=== PATIENT | male | born 1985 | race Caucasian/White ===

== ENCOUNTER → 2016-04-24 | Outpatient (CLI) | payer OTHER ==
[2016-04-24 08:52] LABS: ALBUMIN 3.7 GM/DL (3.2-5.2); ALBUMIN/GLOBULIN RATIO 1.09 (1.00-1.93); ALKALINE PHOSPHATASE 75 U/L (45-117); ALT/SGPT 24 U/L (12-78); ANION GAP 8 MEQ/L (8-16); AST/SGOT 12 U/L (15-37); BILIRUBIN,DIRECT 0.1 MG/DL (0.0-0.2); BILIRUBIN,TOTAL 0.5 MG/DL (0.2-1.0); BLOOD UREA NITROGEN 16 MG/DL (7-18); CALCIUM LEVEL 8.9 MG/DL (8.5-10.1); CARBON DIOXIDE LEVEL 29 MEQ/L (21-32); CHLORIDE LEVEL 105 MEQ/L (98-107); CHOLESTEROL LEVEL 90 MG/DL (<200); CREATININE FOR GFR 1.25 MG/DL (0.70-1.30); GLOMERULAR FILTRATION RATE > 60.0 (>60); GLUCOSE, FASTING 160 MG/DL (70-105); POTASSIUM SERUM 4.2 MEQ/L (3.5-5.1); SODIUM LEVEL 142 MEQ/L (136-145); TOTAL PROTEIN 7.1 GM/DL (6.4-8.2); TRIGLYCERIDES LEVEL 92 MG/DL (<150)
== END ==
LOC: M LAB 07:58
PROVIDERS: ATTEND Family Medicine
DX: E13.29 Other specified diabetes mellitus with other diabetic kidney complication (principal); I10 Essential (primary) hypertension

== ENCOUNTER → 2016-06-15 | Outpatient (REF) | payer OTHER | LOC: M SFHCLERA 13:25 | PROVIDERS: ATTEND Nurse Practitioner Family | DX: R53.81 Other malaise (principal) ==

== ENCOUNTER → 2016-06-19 | Outpatient (REF) | payer OTHER | LOC: M SFHCLERA 10:02 | PROVIDERS: ATTEND Physician Assistant | DX: J02.9 Acute pharyngitis, unspecified (principal) ==

== ENCOUNTER → 2016-07-05 | Outpatient (CLI) | payer OTHER ==
--- NOTE | 2016-07-05 18:57 | REP ---
Clinical: Acute bronchitis . Comparison: 03/02/2009 . Technique: PA and lateral. Findings: The mediastinum and cardiac silhouette are normal. The lung bundy are clear and without acute consolidation, effusion, or pneumothorax. The skeletal structures are intact and normal. Impression: 1. No focal consolidation appreciated. Signed by Yohannes Beach MD 07/05/2016 06:49 P
== END ==
LOC: M RAD 17:27
PROVIDERS: ATTEND Family Medicine
DX: J20.8 Acute bronchitis due to other specified organisms (principal)

== ENCOUNTER 2019-03-23 09:49 | Emergency (ER) | payer OTHER, BC ==
[~2019-03-23] VITALS: Ht 172.7 cm; Wt 96.8 kg
[2019-03-23] MEDS ORDERED: NOVOINJ3 (09:55)
[2019-03-23] MEDS ORDERED: ASPI81TA85 PO (09:55)
[2019-03-23] MEDS ORDERED: SIMV10TA21 (09:55)
[2019-03-23] MEDS ORDERED: LISI-538 (09:55)
[2019-03-23] MEDS ORDERED: TRES1INJ (09:55)
[2019-03-23] MEDS ORDERED: IBUPROFEN 800 MG TAB PO ONE (10:45)
--- NOTE | 2019-03-23 11:23 | REP ---
Five views lumbar spine: 03/23/2019. Indication: Low back pain. Comparison: 03/31/2008. Findings: Vertebral body alignment is anatomic. Disc space height is preserved. There is no acute fracture, subluxation or dislocation. No significant paraspinal soft tissue abnormalities are detected. Impression: No acute osseous lumbar spine injury. Electronically Signed by Evan Napier DO 03/23/2019 11:14 A
[2019-03-23] MEDS ORDERED: LIDOCAINE 5% (LIDODERM) PATCH TD ONE (12:00)
[2019-03-23] MEDS ORDERED: LIDO5DIS41 TOP (12:02)
[2019-03-23] MEDS ORDERED: IBUP80TA PO (12:02)
[2019-03-23 12:24] VITALS: BP 125/80
[2019-03-23] MEDS ORDERED: **NOTE PATIENT COMMENT** MISC XX SCH (21:00)
== END 2019-03-23 12:32 | disposition home or self-care (01) ==
LOC: M ED 09:49
DX: S39.012A Strain of muscle, fascia and tendon of lower back, initial encounter (principal); X50.0XXA Overexertion from strenuous movement or load, initial encounter; Y99.0 Civilian activity done for income or pay; E10.9 Type 1 diabetes mellitus without complications; I10 Essential (primary) hypertension; Z85.820 Personal history of malignant melanoma of skin; Z79.82 Long term (current) use of aspirin; Z79.84 Long term (current) use of oral hypoglycemic drugs; Z79.899 Other long term (current) drug therapy

== ENCOUNTER 2019-10-08 14:34 | Emergency (ER) | payer BC, OTHER ==
[~2019-10-08] VITALS: Ht 172.7 cm; Wt 95.6 kg
[~2019-10-08 14:34] MED LIST: ASPI81TA85 PO; IBUP80TA PO; LIDO5DIS41 TOP; LISI-538; NOVOINJ3; SIMV10TA21; TRES1INJ
[2019-10-08] MEDS ORDERED: BOOSTRIX/ADACEL VACCINE (DIPHTH/PERTUSS/ACELL/TETANUS) 0.5ML SYR IM ONE (15:00)
--- NOTE | 2019-10-08 15:44 | REP ---
Clinical: Trauma left second digit Technique: AP, lateral, bilateral oblique views left second digit Findings: The osseous structures and joint spaces are intact and normal. There is no evidence for acute fracture or dislocation. Surrounding soft tissues are unremarkable. No subcutaneous emphysema or radiodense foreign body. Impression: No subcutaneous emphysema or foreign body. No acute fracture or dislocation. Electronically Signed by Yohannes Beach MD 10/08/2019 03:35 P
[2019-10-08] MEDS ORDERED: LIDOCAINE 1% MDV 20ML VIAL INFIL ONE (15:45)
[2019-10-08] MEDS ORDERED: NEOSPORIN OINT 0.9 GM PKT TOP ONE (16:15)
[2019-10-08 16:16] VITALS: BP 119/68
== END 2019-10-08 16:18 | disposition home or self-care (01) ==
LOC: M ED 14:34
DX: S61.211A Laceration without foreign body of left index finger without damage to nail, initial encounter (principal); W26.0XXA Contact with knife, initial encounter; Y93.G1 Activity, food preparation and clean up; Y92.89 Other specified places as the place of occurrence of the external cause; Y99.9 Unspecified external cause status; I10 Essential (primary) hypertension; E11.9 Type 2 diabetes mellitus without complications; Z79.4 Long term (current) use of insulin

== ENCOUNTER → 2020-04-19 | Outpatient (CLI) | payer BC, OTHER ==
[~2020-04-19] MED LIST changes: -ASPI81TA85 PO; +ASPI81TA86 PO; -LISI-538; +LISI20TA33
[2020-04-19 09:28] LABS: HEMATOCRIT 54.4 % (42.0-52.0); HEMOGLOBIN 18.1 g/dl (13.5-17.5); MEAN CORPUSCULAR HEMOGLOBIN 29.1 pg (27.0-33.0); MEAN CORPUSCULAR HGB CONC 33.3 g/dl (32.0-36.5); MEAN CORPUSCULAR VOLUME 87.6 fl (80.0-96.0); PLATELET COUNT, AUTOMATED 286 10^3/uL (150-450); RED BLOOD COUNT 6.21 10^6/uL (4.30-6.10); WHITE BLOOD COUNT 7.5 10^3/uL (4.0-10.0)
[2020-04-19 10:36] LABS: ALBUMIN 2.8 GM/DL (3.2-5.2); ALT/SGPT 27 U/L (12-78); BILIRUBIN,TOTAL 0.8 MG/DL (0.2-1.0); BLOOD UREA NITROGEN 14 MG/DL (7-18); CALCIUM LEVEL 8.6 MG/DL (8.5-10.1); CARBON DIOXIDE LEVEL 32 MEQ/L (21-32); CHLORIDE LEVEL 108 MEQ/L (98-107); CHOLESTEROL LEVEL 166 MG/DL (<200); CHOLESTEROL RISK RATIO 2.862 (<5); CREATININE FOR GFR 1.09 MG/DL (0.70-1.30); GLOMERULAR FILTRATION RATE > 60.0 (>60); GLUCOSE, FASTING 31 MG/DL (70-100); HDL CHOLESTEROL 58 MG/DL (>40); LDL CHOLESTEROL 94 MG/DL (<100); NON-HDL-C 108 MG/DL; SODIUM LEVEL 143 MEQ/L (136-145); TOTAL PROTEIN 6.1 GM/DL (6.4-8.2); TRIGLYCERIDES LEVEL 71 MG/DL (<150)
[2020-04-19 11:01] LABS: MAU/CREAT RATIO 3112.9 MCG/MG (0.0-30.0)
== END ==
LOC: M LAB 08:51
PROVIDERS: ATTEND Internal Medicine Endocrinology, Diabetes & Metabolism
DX: E10.65 Type 1 diabetes mellitus with hyperglycemia (principal)

== ENCOUNTER → 2020-04-27 | Outpatient (CLI) | payer SELFPAY | LOC: M LABSMTC 10:40 | PROVIDERS: ATTEND Pediatrics | DX: Z20.822 Contact with and (suspected) exposure to COVID-19 (principal) ==

== ENCOUNTER → 2020-06-05 | Outpatient (CLI) | payer BC, OTHER ==
[2020-06-05 10:13] LABS: HEMATOCRIT 52.3 % (42.0-52.0); HEMOGLOBIN 17.7 g/dl (13.5-17.5); MEAN CORPUSCULAR HEMOGLOBIN 29.9 pg (27.0-33.0); MEAN CORPUSCULAR HGB CONC 33.8 g/dl (32.0-36.5); MEAN CORPUSCULAR VOLUME 88.5 fl (80.0-96.0); PLATELET COUNT, AUTOMATED 278 10^3/uL (150-450); RED BLOOD COUNT 5.91 10^6/uL (4.30-6.10); WHITE BLOOD COUNT 8.2 10^3/uL (4.0-10.0)
== END ==
LOC: M LAB 09:43
PROVIDERS: ATTEND Internal Medicine Endocrinology, Diabetes & Metabolism
DX: E10.65 Type 1 diabetes mellitus with hyperglycemia (principal)

== ENCOUNTER → 2020-10-18 | Outpatient (CLI) | payer BC, OTHER ==
[2020-10-18 09:30] LABS: BASO # 0.1 10^3/uL (0.0-0.2); BASO % 1.4 % (0.0-1.0); EOS % 13.9 % (0.0-3.0); HEMATOCRIT 51.5 % (42.0-52.0); HEMOGLOBIN 17.5 g/dl (13.5-17.5); LYMPH % 28.1 % (24.0-44.0); MEAN CORPUSCULAR HEMOGLOBIN 29.9 pg (27.0-33.0); MONO # 0.5 10^3/uL (0.0-0.8); MONO % 6.2 % (2.0-8.0); NEUTROPHILS # 3.6 10^3/uL (1.5-8.5); NEUTROPHILS % 49.6 % (36.0-66.0); PLATELET COUNT, AUTOMATED 281 10^3/uL (150-450); RED BLOOD COUNT 5.85 10^6/uL (4.30-6.10); WHITE BLOOD COUNT 7.3 10^3/uL (4.0-10.0)
[2020-10-18 09:41] LABS: INR 0.87
[2020-10-18 09:42] LABS: PARTIAL THROMBOPLASTIN TIME 30.3 SECONDS (24.2-38.5)
[2020-10-18 09:59] LABS: COLLAGEN EPINEPHRINE 77 SECONDS (74-162)
[2020-10-18 10:00] LABS: BLOOD UREA NITROGEN 15 MG/DL (7-18); CALCIUM LEVEL 8.4 MG/DL (8.5-10.1); CARBON DIOXIDE LEVEL 25 MEQ/L (21-32); CHLORIDE LEVEL 108 MEQ/L (98-107); CREATININE FOR GFR 1.21 MG/DL (0.70-1.30); GLOMERULAR FILTRATION RATE > 60.0 (>60); GLUCOSE, FASTING 241 MG/DL (70-100); SODIUM LEVEL 141 MEQ/L (136-145)
== END ==
LOC: M LAB 08:58
PROVIDERS: ATTEND Internal Medicine Nephrology
DX: R80.9 Proteinuria, unspecified (principal)

== ENCOUNTER 2020-11-21 11:51 | Outpatient (CLI) | payer BC, OTHER ==
[2020-11-21] VITALS (13 sets, daily range): BP systolic 123–146; BP diastolic 54–93
[~2020-11-21] VITALS: Ht 172.7 cm; Wt 98.6 kg
[~2020-11-21 11:51] MED LIST changes: +ALBUTEROL SULFATE 2.5 MG/0.5 ML INH NEB SOLN INH PRN; +EPINEPHrine INJ 1 MG/ML 1ML AMP IM PRN; +diphenhydrAMINE 50MG/ML VIAL (J1200) IV PRN; +methylPREDNISolone 125MG 2ML VIAL IV PRN
[2020-11-21 12:27] LABS: HEMATOCRIT 50.9 % (42.0-52.0); HEMOGLOBIN 17.2 g/dl (13.5-17.5); MEAN CORPUSCULAR HEMOGLOBIN 29.9 pg (27.0-33.0); MEAN CORPUSCULAR HGB CONC 33.8 g/dl (32.0-36.5); MEAN CORPUSCULAR VOLUME 88.5 fl (80.0-96.0); PLATELET COUNT, AUTOMATED 304 10^3/uL (150-450); RED BLOOD COUNT 5.75 10^6/uL (4.30-6.10); WHITE BLOOD COUNT 7.2 10^3/uL (4.0-10.0)
[2020-11-21] MEDS ORDERED: RITU10VLL IV (12:52)
[2020-11-21] MEDS ORDERED: RITUXIMAB PVVR IV ONE ×3 (13:30)
[2020-11-21] MEDS ORDERED: NS 1,000 ML IV SCH (13:30)
== END 2020-11-21 17:45 | disposition home or self-care (01) ==
LOC: M INFU 11:51
PROVIDERS: ATTEND Internal Medicine Nephrology
DX: N04.9 Nephrotic syndrome with unspecified morphologic changes (principal)
CPT/HCPCS: 36592; 85027; 96375; 96413; 96415; J1200; Q5119

== ENCOUNTER 2020-11-28 10:02 | Outpatient (CLI) | payer BC, OTHER ==
[~2020-11-28] VITALS: Ht 172.7 cm; Wt 98.6 kg
[2020-11-28] VITALS (7 sets, daily range): BP systolic 111–144; BP diastolic 57–86
[~2020-11-28 10:02] MED LIST changes: +ACETAMINOPHEN TAB 650MG DOSE (2X325MG) PO ONE; +NS 1,000 ML IV SCH; +NS IV ONE; +RITU10VLL IV; +RITUXIMAB PVVR IV ONE; +diphenhydrAMINE 50MG/ML VIAL (J1200) IV ONE
[2020-11-28 10:34] LABS: HEMATOCRIT 50.5 % (42.0-52.0); HEMOGLOBIN 17.9 g/dl (13.5-17.5); MEAN CORPUSCULAR HEMOGLOBIN 30.6 pg (27.0-33.0); MEAN CORPUSCULAR HGB CONC 35.4 g/dl (32.0-36.5); MEAN CORPUSCULAR VOLUME 86.3 fl (80.0-96.0); PLATELET COUNT, AUTOMATED 261 10^3/uL (150-450); RED BLOOD COUNT 5.85 10^6/uL (4.30-6.10); WHITE BLOOD COUNT 8.3 10^3/uL (4.0-10.0)
== END 2020-11-28 10:10 | disposition home or self-care (01) ==
LOC: M INFU 10:02
PROVIDERS: ATTEND Internal Medicine Nephrology
DX: N04.2 Nephrotic syndrome with diffuse membranous glomerulonephritis (principal)
CPT/HCPCS: 36592; 85027; 96375; 96413; 96415; J1200; Q5119

== ENCOUNTER 2020-12-05 10:26 | Outpatient (CLI) | payer BC, OTHER ==
[~2020-12-05] VITALS: Ht 172.7 cm; Wt 98.6 kg
[2020-12-05] VITALS (7 sets, daily range): BP systolic 114–136; BP diastolic 65–89
[2020-12-05 11:00] LABS: HEMATOCRIT 54.8 % (42.0-52.0); HEMOGLOBIN 18.8 g/dl (13.5-17.5); MEAN CORPUSCULAR HEMOGLOBIN 30.1 pg (27.0-33.0); MEAN CORPUSCULAR HGB CONC 34.3 g/dl (32.0-36.5); MEAN CORPUSCULAR VOLUME 87.8 fl (80.0-96.0); PLATELET COUNT, AUTOMATED 346 10^3/uL (150-450); RED BLOOD COUNT 6.24 10^6/uL (4.30-6.10); WHITE BLOOD COUNT 8.6 10^3/uL (4.0-10.0)
== END 2020-12-05 15:20 | disposition home or self-care (01) ==
LOC: M INFU 10:26
PROVIDERS: ATTEND Internal Medicine Nephrology
DX: N04.2 Nephrotic syndrome with diffuse membranous glomerulonephritis (principal)
CPT/HCPCS: 36592; 85027; 96375; 96413; 96415; J1200; Q5119

== ENCOUNTER 2020-12-13 09:56 | Outpatient (CLI) | payer BC, OTHER ==
[~2020-12-13] VITALS: Ht 172.7 cm; Wt 98.6 kg
[~2020-12-13 09:56] MED LIST changes: -ACETAMINOPHEN TAB 650MG DOSE (2X325MG) PO ONE; -ALBUTEROL SULFATE 2.5 MG/0.5 ML INH NEB SOLN INH PRN; -EPINEPHrine INJ 1 MG/ML 1ML AMP IM PRN; -NS 1,000 ML IV SCH; -NS IV ONE; -RITUXIMAB PVVR IV ONE; -diphenhydrAMINE 50MG/ML VIAL (J1200) IV ONE; -diphenhydrAMINE 50MG/ML VIAL (J1200) IV PRN; -methylPREDNISolone 125MG 2ML VIAL IV PRN
[2020-12-13 10:00] VITALS: BP 140/98
[2020-12-13] MEDS ORDERED: ALBUTEROL SULFATE 2.5 MG/0.5 ML INH NEB SOLN INH PRN (10:00)
[2020-12-13] MEDS ORDERED: NS IV ONE ×6 (10:00)
[2020-12-13] MEDS ORDERED: ACETAMINOPHEN TAB 650MG DOSE (2X325MG) PO ONE (10:00)
[2020-12-13] MEDS ORDERED: diphenhydrAMINE 50MG/ML VIAL (J1200) IV ONE (10:00)
[2020-12-13] MEDS ORDERED: EPINEPHrine INJ 1 MG/ML 1ML AMP IM PRN (10:00)
[2020-12-13] MEDS ORDERED: methylPREDNISolone 125MG 2ML VIAL IV PRN (10:00)
[2020-12-13] MEDS ORDERED: RITUXIMAB PVVR IV ONE ×6 (10:00)
[2020-12-13] MEDS ORDERED: NS 1,000 ML IV SCH (10:00)
[2020-12-13] MEDS ORDERED: diphenhydrAMINE 50MG/ML VIAL (J1200) IV PRN (10:00)
[2020-12-13 10:17] LABS: HEMATOCRIT 49.6 % (42.0-52.0); HEMOGLOBIN 16.9 g/dl (13.5-17.5); MEAN CORPUSCULAR HGB CONC 34.1 g/dl (32.0-36.5); MEAN CORPUSCULAR VOLUME 87.9 fl (80.0-96.0); PLATELET COUNT, AUTOMATED 292 10^3/uL (150-450); RED BLOOD COUNT 5.64 10^6/uL (4.30-6.10); WHITE BLOOD COUNT 6.4 10^3/uL (4.0-10.0)
[2020-12-13 11:30] VITALS: BP 121/71
[2020-12-13 12:00] VITALS: BP 116/66
[2020-12-13 12:30] VITALS: BP 120/77
[2020-12-13 14:40] VITALS: BP 115/70
== END 2020-12-13 14:40 | disposition home or self-care (01) ==
LOC: M INFU 09:56
PROVIDERS: ATTEND Internal Medicine Nephrology
DX: N04.2 Nephrotic syndrome with diffuse membranous glomerulonephritis (principal)
CPT/HCPCS: 36592; 85027; 96375; 96413; 96415; J1200; Q5119

== ENCOUNTER 2021-07-28 23:05 | Emergency (ER) | payer BC, OTHER ==
[~2021-07-28] VITALS: Ht 172.7 cm; Wt 95.5 kg
[2021-07-28] MEDS ORDERED: AMLO1TAB25 PO (23:16)
[2021-07-29 00:22] LABS: BASO % 0.3 % (0.0-1.0); EOS # 0.1 10^3/uL (0.0-0.5); EOS % 0.9 % (0.0-3.0); HEMATOCRIT 48.9 % (42.0-52.0); HEMOGLOBIN 16.8 g/dl (13.5-17.5); LYMPH % 9.2 % (24.0-44.0); MEAN CORPUSCULAR HEMOGLOBIN 29.4 pg (27.0-33.0); MEAN CORPUSCULAR HGB CONC 34.4 g/dl (32.0-36.5); MEAN CORPUSCULAR VOLUME 85.5 fl (80.0-96.0); MONO # 0.6 10^3/uL (0.0-0.8); MONO % 5.9 % (2.0-8.0); NEUTROPHILS # 9.1 10^3/uL (1.5-8.5); NEUTROPHILS % 83.2 % (36.0-66.0); PLATELET COUNT, AUTOMATED 287 10^3/uL (150-450); RED BLOOD COUNT 5.72 10^6/uL (4.30-6.10); WHITE BLOOD COUNT 10.9 10^3/uL (4.0-10.0)
[2021-07-29 00:33] LABS: INR 0.91; PROTHROMBIN TIME 12.7 SECONDS (12.7-14.5)
[2021-07-29 00:34] LABS: PARTIAL THROMBOPLASTIN TIME 31.2 SECONDS (25.9-37.0)
[2021-07-29 00:36] LABS: D-DIMER QUANT 527.9 ng/ml (<500)
[2021-07-29 00:42] LABS: CK-MB VALUE MASS 2.9 NG/ML (<3.6); MB/CK RELATIVE INDEX 1.16 (< OR =4)
[2021-07-29 00:50] LABS: ALBUMIN 3.4 GM/DL (3.2-5.2); ALT/SGPT 30 U/L (12-78); BILIRUBIN,DIRECT 0.4 MG/DL (0.0-0.2); BILIRUBIN,TOTAL 1.2 MG/DL (0.2-1.0); BLOOD UREA NITROGEN 14 MG/DL (7-18); C REACTIVE PROTEIN QUANTITATIV 1.29 MG/DL (0.00-0.30); CARBON DIOXIDE LEVEL 26 MEQ/L (21-32); CHLORIDE LEVEL 105 MEQ/L (98-107); CREATININE FOR GFR 1.28 MG/DL (0.70-1.30); FREE T4 1.29 NG/DL (0.76-1.46); GLOMERULAR FILTRATION RATE > 60.0 (>60); GLUCOSE, FASTING 238 MG/DL (70-100); LIPASE 42 U/L (73-393); POTASSIUM SERUM 3.9 MEQ/L (3.5-5.1); SODIUM LEVEL 138 MEQ/L (136-145); TOTAL PROTEIN 6.6 GM/DL (6.4-8.2)
[2021-07-29 00:51] LABS: ERYTHROCYTE SEDIMENTATION RATE 4 mm/hr (0-15)
[2021-07-29] MEDS ORDERED: GI COCKTAIL 50ML BTL(HYOSCYAMINE/MAALOX/LIDOCAINE VISCOUS)(1:3:1) PO ONE (01:15)
[2021-07-29] MEDS ORDERED: NS 1,000 ML IV ONE (01:15)
[2021-07-29] MEDS ORDERED: PANTOPRAZOLE 40MG VIAL IV ONE (01:15)
[2021-07-29] MEDS ORDERED: SUCRALFATE 1 GM TAB PO ONE (01:15)
[2021-07-29] MEDS ORDERED: ONDANSETRON 4MG/2ML VIAL IV ONE (01:15)
[2021-07-29] MEDS ORDERED: ISOVUE-370 76% 100ML VIAL As Ordered ONE (01:25)
[2021-07-29 01:43] LABS: VENOUS BASE EXCESS -4.6 (-2.0-2.0); VENOUS HCO3 19.3 MEQ/L (23.0-27.0); VENOUS O2 SATURATION 92.7 % (60.0-80.0); VENOUS PARTIAL PRESSURE CO2 33.4 mmHg (38.0-50.0); VENOUS PARTIAL PRESSURE O2 64.7 mmHg (30.0-50.0); VENOUS STANDARD HCO3 20.6 MEQ/L; VENOUS TOTAL CO2 20.3 MEQ/L (24.0-28.0)
[2021-07-29] MEDS ORDERED: OMEP-173 PO (02:16)
[2021-07-29 02:37] LABS: CK-MB VALUE MASS 2.7 NG/ML (<3.6); MB/CK RELATIVE INDEX 1.23 (< OR =4)
[2021-07-29 02:44] VITALS: BP 153/90
== END 2021-07-29 03:10 | disposition home or self-care (01) ==
LOC: M ED 23:05
DX: R07.89 Other chest pain (principal); R16.0 Hepatomegaly, not elsewhere classified; K21.9 Gastro-esophageal reflux disease without esophagitis; R11.2 Nausea with vomiting, unspecified; E10.9 Type 1 diabetes mellitus without complications; I10 Essential (primary) hypertension; Z88.8 Allergy status to other drugs, medicaments and biological substances; Z79.4 Long term (current) use of insulin; Z79.899 Other long term (current) drug therapy
CPT/HCPCS: 71045; 71275; 80048; 80076; 82550; 82553; 82803; 83690; 84439; 84443; 84484; 85025; 85379; 85610; 85652; 85730; 86140; 93005; 93041; 94760; 96361; 96374; 96375; 99285; C9113; J2405; Q9967

== ENCOUNTER 2022-01-16 07:59 | Outpatient (CLI) | payer BC, OTHER ==
[~2022-01-16 07:59] MED LIST changes: +ALBUTEROL SULFATE 2.5 MG/0.5 ML INH NEB SOLN INH PRN; +AMLO1TAB25 PO; +EPINEPHrine INJ 1 MG/ML 1ML AMP IM PRN; +NS 1,000 ML IV SCH; +NS IV ONE; +OMEP-173 PO; +RITUXIMAB PVVR IV ONE; +diphenhydrAMINE 50MG/ML VIAL (J1200) IV PRN; +methylPREDNISolone 125MG 2ML VIAL IV PRN
[2022-01-16 08:05] VITALS: BP 140/98
[2022-01-16] MEDS ORDERED: diphenhydrAMINE 50MG/ML VIAL (J1200) IV ONE (09:10)
[2022-01-16] MEDS ORDERED: ACETAMINOPHEN TAB 650MG DOSE (2X325MG) PO ONE (09:10)
[2022-01-16 10:15] VITALS: BP 136/80
[2022-01-16 10:45] VITALS: BP 137/88
[2022-01-16 11:45] VITALS: BP 135/85
[2022-01-16 12:15] VITALS: BP 133/82
[2022-01-16 13:35] VITALS: BP 143/80
== END 2022-01-16 13:35 | disposition home or self-care (01) ==
LOC: M INFU 07:59
PROVIDERS: ATTEND Internal Medicine Nephrology
DX: N04.0 Nephrotic syndrome with minor glomerular abnormality (principal); Z88.8 Allergy status to other drugs, medicaments and biological substances
CPT/HCPCS: 96367; 96413; 96415; J1200; Q5119

== ENCOUNTER → 2023-05-21 | Outpatient (CLI) | payer BC, OTHER ==
[~2023-05-21] MED LIST changes: -ALBUTEROL SULFATE 2.5 MG/0.5 ML INH NEB SOLN INH PRN; -EPINEPHrine INJ 1 MG/ML 1ML AMP IM PRN; -NS 1,000 ML IV SCH; -NS IV ONE; -RITUXIMAB PVVR IV ONE; -diphenhydrAMINE 50MG/ML VIAL (J1200) IV PRN; -methylPREDNISolone 125MG 2ML VIAL IV PRN
[2023-05-21 12:51] LABS: HEMATOCRIT 54.5 % (42.0-52.0); HEMOGLOBIN 18.6 g/dl (13.5-17.5); MEAN CORPUSCULAR HEMOGLOBIN 29.7 pg (27.0-33.0); MEAN CORPUSCULAR HGB CONC 34.1 g/dl (32.0-36.5); MEAN CORPUSCULAR VOLUME 86.9 fl (80.0-96.0); PLATELET COUNT, AUTOMATED 276 10^3/uL (150-450); RED BLOOD COUNT 6.27 10^6/uL (4.30-6.10); WHITE BLOOD COUNT 7.8 10^3/uL (4.0-10.0)
[2023-05-21 13:26] LABS: ALBUMIN 3.9 G/DL (3.2-5.2); ALKALINE PHOSPHATASE 60 U/L (46-116); ALT/SGPT 21 U/L (7.0-40); AST/SGOT 17 U/L (<34); BILIRUBIN,TOTAL 1.3 MG/DL (0.3-1.2); BLOOD UREA NITROGEN 19 MG/DL (9-23); CALCIUM LEVEL 9.1 MG/DL (8.5-10.1); CARBON DIOXIDE LEVEL 27 MMOL/L (20-31); CHLORIDE LEVEL 105 MMOL/L (98-107); CHOLESTEROL LEVEL 101 MG/DL (<200); CHOLESTEROL RISK RATIO 2.19 (<5); CREATININE FOR GFR 1.26 MG/DL (0.70-1.30); GLOMERULAR FILTRATION RATE > 60.0 (>60); GLUCOSE, FASTING 181 MG/DL (60-100); HDL CHOLESTEROL 46.1 MG/DL (>40); LDL CHOLESTEROL 40.5 MG/DL (<100); NON-HDL-C 54.9 MG/DL; POTASSIUM SERUM 4.1 MMOL/L (3.5-5.1); SODIUM LEVEL 138 MMOL/L (136-145); TOTAL PROTEIN 6.6 G/DL (5.7-8.2); TRIGLYCERIDES LEVEL 72 MG/DL (<150)
[2023-05-21 13:41] LABS: TESTOSTERONE 511 NG/DL (241-827)
[2023-05-21 13:42] LABS: THYROID STIMULATING HORMONE 5.258 uIU/ML (0.55-4.78)
[2023-05-21 13:45] LABS: MAU/CREAT RATIO 841.9 MCG/MG (0.0-30.0)
== END ==
LOC: M LAB 11:19
PROVIDERS: ATTEND Internal Medicine Endocrinology, Diabetes & Metabolism
DX: E10.65 Type 1 diabetes mellitus with hyperglycemia (principal)

== ENCOUNTER → 2023-06-14 | Outpatient (CLI) | payer BC ==
[2023-06-14 17:47] LABS: PERCENT SATURATION 17.7 % (19.7-50.0)
[2023-06-14 17:49] LABS: FERRITIN 48.6 NG/ML (10.5-307.3)
[2023-06-14 17:50] LABS: FOLATE 14.2 NG/ML (>5.4)
== END ==
LOC: M LAB 16:34
PROVIDERS: ATTEND Family Medicine
DX: E02 Subclinical iodine-deficiency hypothyroidism (principal); D75.9 Disease of blood and blood-forming organs, unspecified

== ENCOUNTER → 2023-06-14 | Outpatient (CLI) | payer BC ==
[2023-06-14 18:02] LABS: THYROID STIMULATING HORMONE 4.277 uIU/ML (0.55-4.78)
== END ==
LOC: M LAB 16:35
PROVIDERS: ATTEND Internal Medicine Endocrinology, Diabetes & Metabolism
DX: E10.65 Type 1 diabetes mellitus with hyperglycemia (principal)

== ENCOUNTER → 2024-07-14 | Outpatient (CLI) | payer BC ==
[2024-07-14 11:21] LABS: HEMOGLOBIN 18.4 g/dl (13.5-17.5); MEAN CORPUSCULAR HEMOGLOBIN 29.8 pg (27.0-33.0); MEAN CORPUSCULAR HGB CONC 34.1 g/dl (32.0-36.5); MEAN CORPUSCULAR VOLUME 87.4 fl (80.0-96.0); PLATELET COUNT, AUTOMATED 265 10^3/uL (150-450); RED BLOOD COUNT 6.18 10^6/uL (4.30-6.10); WHITE BLOOD COUNT 6.9 10^3/uL (4.0-10.0)
[2024-07-14 11:52] LABS: HEMOGLOBIN A1c 6.9 % (4.0-6.0)
[2024-07-14 11:56] LABS: CREATININE, URINE 184.3 MG/DL
[2024-07-14 11:59] LABS: ALBUMIN 3.5 G/DL (3.2-5.2); CALCIUM LEVEL 9.1 MG/DL (8.5-10.1); CHOLESTEROL RISK RATIO 3.12 (<5); CREATININE FOR GFR 1.3 MG/DL (0.70-1.30); GLOMERULAR FILTRATION RATE 70.8 (>60); HDL CHOLESTEROL 37.1 MG/DL (>40); LDL CHOLESTEROL 55.5 MG/DL (<100); NON-HDL-C 78.9 MG/DL; POTASSIUM SERUM 4.2 MMOL/L (3.5-5.1); THYROID STIMULATING HORMONE 5.858 uIU/ML (0.55-4.78); TOTAL PROTEIN 6.7 G/DL (5.7-8.2)
[2024-07-14 12:00] LABS: FREE T4 1.04 NG/DL (0.89-1.76)
[2024-07-14 12:14] LABS: MAU/CREAT RATIO 1016.2 MCG/MG (0.0-30.0)
== END ==
LOC: M LAB 10:24
PROVIDERS: ATTEND Nurse Practitioner Family
DX: E10.65 Type 1 diabetes mellitus with hyperglycemia (principal)

== ENCOUNTER → 2024-07-21 | Outpatient (CLI) | payer BC ==
[2024-07-21 16:28] LABS: FREE T4 1.1 NG/DL (0.89-1.76); THYROID STIMULATING HORMONE 5.847 uIU/ML (0.55-4.78)
== END ==
LOC: M LAB 15:18
PROVIDERS: ATTEND Nurse Practitioner Family
DX: E03.9 Hypothyroidism, unspecified (principal)